=== PATIENT | male | born 1950 | race Caucasian/White ===

== ENCOUNTER 2018-04-22 15:57 | Emergency (ER) | payer OTHER, MEDICARE ==
--- NOTE | 2018-04-22 17:10 | ER Document Report ---
ED Medical Screen (RME) - General Chief Complaint: Cough Stated Complaint: DIZZY Time Seen by Provider: 04/22/18 17:09 Mode of Arrival: Ambulatory Information source: Patient TRAVEL OUTSIDE OF THE [place] IN LAST 30 DAYS: No - HPI Patient complains to provider of: cough Onset: Other - pt. with c/o productive cough and occ. dizziness for the past several days. - Related Data Allergies/Adverse Reactions: No Known Allergies Allergy (Verified 04/22/18 16:08) Past Medical History - Social History Chew tobacco use (# tins/day): No Frequency of alcohol use: Occasional Drug Abuse: None - Past Medical History Cardiac Medical History: Reports: Hx Hypercholesterolemia, Hx Hypertension Pulmonary Medical History: Reports: Hx COPD, Hx Pneumonia Renal/ Medical History: Denies: Hx Peritoneal Dialysis Psychiatric Medical History: Reports: Hx Depression, Hx Schizophrenia Past Surgical History: Reports: Hx Cholecystectomy, Hx Herniorrhaphy Physical Exam - Vital signs Vitals: Temp Pulse Resp BP Pulse Ox 99.2 F 78 20 140/87 H 96 04/22/18 16:20 04/22/18 16:20 04/22/18 16:20 04/22/18 16:20 04/22/18 16:20 Course - Vital Signs Vital signs: Temp Pulse Resp BP Pulse Ox 99.2 F 78 20 140/87 H 96 04/22/18 16:20 04/22/18 16:20 04/22/18 16:20 04/22/18 16:20 04/22/18 16:20
[2018-04-22 17:37] LABS: ABSOLUTE LYMPHOCYTES (AUTO) 1.4 10^3/uL (0.5-4.7); ABSOLUTE MONOCYTES (AUTO) 1.6 10^3/uL (0.1-1.4); ABSOLUTE NEUT (AUTO) 7.9 10^3/uL (1.7-8.2); BASOPHILS % (AUTO) 0.2 % (0-2); EOSINOPHILS % (AUTO) 0.4 % (0-6); HEMATOCRIT 41.4 % (37.9-51.0); MEAN CORPUSCULAR HEMOGLOBIN 30.6 pg (27.0-33.4); MEAN CORPUSCULAR HGB CONC 33.9 g/dL (32.0-36.0); MEAN CORPUSCULAR VOLUME 90 fl (80-97); MONOCYTES % (AUTO) 14.8 % (3-13); PLATELET COUNT 254 10^3/uL (150-450); RED BLOOD COUNT 4.58 10^6/uL (4.35-5.55); RED CELL DISTRIBUTION WIDTH 14.8 % (11.5-14.0); SEGMENTED NEUTROPHILS % (AUTO) 71.6 % (42-78); TOTAL CELLS COUNTED % (AUTO) 100 %; WHITE BLOOD COUNT 11.1 10^3/uL (4.0-10.5)
[2018-04-22 17:51] LABS: ALANINE AMINOTRANSFERASE 53 U/L (21-72); ALBUMIN 4.2 g/dL (3.5-5.0); ALKALINE PHOSPHATASE 57 U/L (38-126); ANION GAP 13 (5-19); ASPARTATE AMINO TRANSFERASE 37 U/L (17-59); BILIRUBIN,DIRECT 0.3 mg/dL (0.0-0.4); BILIRUBIN,TOTAL 0.6 mg/dL (0.2-1.3); BLOOD UREA NITROGEN 34 mg/dL (7-20); CALCIUM 9.2 mg/dL (8.4-10.2); CARBON DIOXIDE 28 mmol/L (22-30); CHLORIDE 100 mmol/L (98-107); GLUCOSE 94 mg/dL (75-110); POTASSIUM 3.9 mmol/L (3.6-5.0); SODIUM 140.5 mmol/L (137-145); TOTAL PROTEIN 6.9 g/dL (6.3-8.2)
--- NOTE | 2018-04-22 18:40 | RADIOLOGY REPORT (SQ) ---
EXAM DESCRIPTION: CHEST 2 VIEWS COMPLETED DATE/TIME: 04/22/2018 5:59 pm REASON FOR STUDY: cough COMPARISON: 03/12/2015 EXAM PARAMETERS: NUMBER OF VIEWS: two views TECHNIQUE: Digital Frontal and Lateral radiographic views of the chest acquired. RADIATION DOSE: NA LIMITATIONS: none FINDINGS: LUNGS AND PLEURA: No acute opacities, masses or pneumothorax. Similar coarse interstitial changes -parenchymal scarring -nodularity compared to the prior study. No pleural effusion. MEDIASTINUM AND HILAR STRUCTURES: Stable, multiple calcified lymph nodes. . HEART AND VASCULAR STRUCTURES: Heart normal size. No evidence for failure. BONES: No acute findings. HARDWARE: None in the chest. OTHER: No other significant finding. IMPRESSION: NO ACUTE RADIOGRAPHIC FINDING IN THE CHEST.Similar coarse interstitial changes -parenchy mal scarring -nodularity compared to the prior study. TECHNICAL DOCUMENTATION: JOB ID: [id number] [place]-72 2010 [employer]- All Rights Reserved Reading location - IP/workstation name: [email or web address]
[2018-04-22] MEDS ORDERED: LIDOCAINE 2% INJ-PF (20 MG/ML) 10 ML AMPUL NEB ONE (20:19)
[2018-04-22] MEDS ORDERED: BENZONATATE 100 MG CAPSULE PO ONE (20:19)
--- NOTE | 2018-04-22 20:22 | ER Document Report ---
ED General - General Chief Complaint: Cough Stated Complaint: DIZZY Time Seen by Provider: 04/22/18 17:09 Mode of Arrival: Ambulatory Notes: Patient is a 67-year-old male with a past medical history of sarcoidosis who presents with 2 weeks of a persistent, nonproductive cough. The patient was seen in urgent care approximately 1 week ago, started on steroids and an antibiotic but notes that this has not improved his cough. The patient describes the cough as being a pervasive, persistent cough but denies any associated sputum production, shortness of breath, or chest pain. He states that he has had similar symptoms in the past with bronchitis. The patient does also report that he has been taking albuterol and Symbicort without any significant improvement of his symptoms. He denies any fever or constitutional symptoms. TRAVEL OUTSIDE OF THE [place] IN LAST 30 DAYS: No - Related Data Allergies/Adverse Reactions: No Known Allergies Allergy (Verified 04/22/18 16:08) Past Medical History - General Information source: Patient - Social History Smoking Status: Former Smoker Chew tobacco use (# tins/day): No Frequency of alcohol use: Occasional Drug Abuse: None Lives with: Family Family History: Reviewed & Not Pertinent Patient has suicidal ideation: No Patient has homicidal ideation: No - Past Medical History Cardiac Medical History: Reports: Hx Hypercholesterolemia, Hx Hypertension Pulmonary Medical History: Reports: Hx COPD, Hx Pneumonia Renal/ Medical History: Denies: Hx Peritoneal Dialysis Psychiatric Medical History: Reports: Hx Depression, Hx Schizophrenia Past Surgical History: Reports: Hx Cholecystectomy, Hx Herniorrhaphy - Immunizations Hx Pneumococcal Vaccination: 09/13/11 Review of Systems - Review of Systems Notes: Constitutional: Negative for fever. HENT: Negative for sore throat. Eyes: Negative for visual changes. Cardiovascular: Negative for chest pain. Respiratory: Positive for persistent cough Gastrointestinal: Negative for abdominal pain, vomiting or diarrhea. Genitourinary: Negative for dysuria. Musculoskeletal: Negative for back pain. Skin: Negative for rash. Neurological: Negative for headaches, weakness or numbness. 10 point ROS negative except as marked above and in HPI. Physical Exam - Vital signs Vitals: Temp Pulse Resp BP Pulse Ox 99.2 F 78 20 140/87 H 96 04/22/18 16:20 04/22/18 16:20 04/22/18 16:20 04/22/18 16:20 04/22/18 16:20 Interpretation: Normal Notes: PHYSICAL EXAMINATION: GENERAL: Well-appearing, well-nourished and in no acute distress. HEAD: Atraumatic, normocephalic. EYES: Pupils equal round and reactive to light, extraocular movements intact, sclera anicteric, conjunctiva are normal. ENT: nares patent, oropharynx clear without exudates. Moist mucous membranes. NECK: Normal range of motion, supple without lymphadenopathy LUNGS: Breath sounds clear to auscultation bilaterally and equal. Faint end expiratory wheezing in all lung o[place] HEART: Regular rate and rhythm without murmurs ABDOMEN: Soft, nontender, normoactive bowel sounds. No guarding, no rebound. No masses appreciated. EXTREMITIES: Normal range of motion, no pitting or edema. No cyanosis. NEUROLOGICAL: No focal neurological deficits. Moves all extremities spontaneously and on command. PSYCH: Normal mood, normal affect. SKIN: Warm, Dry, normal turgor, no rashes or lesions noted. Course - Re-evaluation Re-evalutation: 04/22/18 20:20 Patient presents with a clinical history and exam most consistent with an acute viral bronchitis. Patient is overall well in appearance without tachypnea, hypoxemia, tachycardia, or difficulty with ambulation. Breath sounds are clear bilaterally. No fever. Patient does have additional signs of upper respiratory infection including nasal congestion, sore throat, and sinus pressure. Patient does have a history of sarcoidosis which is noted on chest x- ray. He has already been started on a steroid burst by his primary care doctor. He also ready has albuterol inhalers at home. He is currently on oral antibiotics but does not recall the name. His chest x-ray does not show an acute pneumonia and his clinical history is most consistent with a viral lower respiratory tract infection superimposed on underlying sarcoidosis. He is saturating 97% on room air, and not tachypnea, very well in appearance. He has had improvement of his cough after receiving Tessalon and lidocaine nebulizer. At this time will discharge with return precautions and follow-up recommendations. Verbal discharge instructions given a the bedside and opportunity for questions given. Medication warnings reviewed. Patient is in agreement with this plan and has verbalized understanding of return precautions and the need for primary care follow-up in the next 24-72 hours. 04/23/18 03:38 - Vital Signs Vital signs: Temp Pulse Resp BP Pulse Ox 97.6 F 71 16 150/88 H 100 04/22/18 21:00 04/22/18 21:00 04/22/18 21:00 04/22/18 21:00 04/22/18 21:00 - Laboratory Result Diagrams: 04/22/18 17:20 04/22/18 17:20 Laboratory results interpreted by me: 04/22/18 04/22/18 17:20 17:20 WBC 11.1 H RDW 14.8 H Monocytes % 14.8 H Absolute Monocytes 1.6 H BUN 34 H Creatinine 1.45 H Est GFR ( Amer) 59 L Est GFR (Non-Af Amer) 49 L - Diagnostic Test Radiology reviewed: Image reviewed, Reports reviewed Radiology results interpreted by me: 04/22/18 20:21 Chest x-ray: Scattered nodularities, no acute infiltrate Discharge - Discharge Clinical Impression: Persistent cough, Sarcoidosis Acute bronchitis Qualifiers: Bronchitis organism: unspecified organism Qualified Code(s): J20.9 - Acute bronchitis, unspecified Condition: Good Disposition: HOME, SELF-CARE Additional Instructions: You were seen for symptoms most consistent with bronchitis. This can take up to 12 weeks to fully resolve. This is generally due to a viral infection. Please follow-up with your primary doctor in the next 2-3 days. Return if you develop worsening cough, vomiting, fever >100.4, pass out, begin coughing blood, or have any other symptoms that are concerning to you. Please use the medications prescribed today as directed. Referrals: RIA VINSON DO [Primary Care Provider] - Follow up as needed
[2018-04-22 21:05] VITALS: BP 150/88
== END 2018-04-22 21:02 | disposition home or self-care (01) ==
LOC: ER 15:57
DX: J20.9 Acute bronchitis, unspecified (principal); J44.0 Chronic obstructive pulmonary disease with (acute) lower respiratory infection; D86.9 Sarcoidosis, unspecified; R05 Cough; R09.81 Nasal congestion; I10 Essential (primary) hypertension; Z87.01 Personal history of pneumonia (recurrent); Z87.891 Personal history of nicotine dependence
CPT/HCPCS: 99284; 36415; 85025; 80053; 71046; J3490

== ENCOUNTER 2019-08-25 12:31 | Emergency (ER) | payer OTHER, MEDICARE ==
[2019-08-25 13:05] LABS: ABSOLUTE EOSINOPHILS # (AUTO) 0.3 10^3/uL (0.0-0.6); ABSOLUTE LYMPHOCYTES (AUTO) 1.3 10^3/uL (0.5-4.7); ABSOLUTE MONOCYTES (AUTO) 1.1 10^3/uL (0.1-1.4); ABSOLUTE NEUT (AUTO) 4.1 10^3/uL (1.7-8.2); BASOPHILS % (AUTO) 0.7 % (0-2); EOSINOPHILS % (AUTO) 4.3 % (0-6); HEMATOCRIT 40.7 % (37.9-51.0); HEMOGLOBIN 13.5 g/dL (13.5-17.0); MEAN CORPUSCULAR HEMOGLOBIN 29.8 pg (27.0-33.4); MEAN CORPUSCULAR HGB CONC 33.2 g/dL (32.0-36.0); MEAN CORPUSCULAR VOLUME 90 fl (80-97); MONOCYTES % (AUTO) 15.6 % (3-13); PLATELET COUNT 243 10^3/uL (150-450); RED BLOOD COUNT 4.54 10^6/uL (4.35-5.55); RED CELL DISTRIBUTION WIDTH 14.5 % (11.5-14.0); SEGMENTED NEUTROPHILS % (AUTO) 60.4 % (42-78); TOTAL CELLS COUNTED % (AUTO) 100 %; WHITE BLOOD COUNT 6.8 10^3/uL (4.0-10.5)
[2019-08-25 13:30] LABS: ALKALINE PHOSPHATASE 95 U/L (38-126); ANION GAP 9 (5-19); ASPARTATE AMINO TRANSFERASE 27 U/L (17-59); BILIRUBIN,DIRECT 0.2 mg/dL (0.0-0.4); BILIRUBIN,TOTAL 0.4 mg/dL (0.2-1.3); BLOOD UREA NITROGEN 9 mg/dL (7-20); CALCIUM 8.8 mg/dL (8.4-10.2); CARBON DIOXIDE 31 mmol/L (22-30); CHLORIDE 101 mmol/L (98-107); CREATINE KINASE 169 U/L (55-170); GLUCOSE 108 mg/dL (75-110); POTASSIUM 3.5 mmol/L (3.6-5.0)
[2019-08-25 13:42] LABS: CREATINE KINASE MB 2.44 ng/mL (<4.55)
[2019-08-25 13:43] LABS: TROPONIN I < 0.012 ng/mL
[2019-08-25 14:55] LABS: APPEARANCE,URINE CLEAR; BILIRUBIN,URINE NEGATIVE (NEGATIVE); COLOR,URINE YELLOW; GLUCOSE, URINE NEGATIVE (NEGATIVE); KETONES,URINE NEGATIVE (NEGATIVE); LEUKOCYTE ESTERASE,URINE NEGATIVE (NEGATIVE); NITRITE,URINE NEGATIVE (NEGATIVE); PROTEIN,URINE NEGATIVE (NEGATIVE); URINE SPECIFIC GRAVITY 1.006
--- NOTE | 2019-08-25 15:18 | RADIOLOGY REPORT (SQ) ---
EXAM DESCRIPTION: CHEST SINGLE VIEW COMPLETED DATE/TIME: 08/25/2019 3:09 pm REASON FOR STUDY: SOB COMPARISON: 04/22/2018 EXAM PARAMETERS: NUMBER OF VIEWS: One view. TECHNIQUE: Single frontal radiographic view of the chest acquired. RADIATION DOSE: NA LIMITATIONS: None. FINDINGS: LUNGS AND PLEURA: Chronic pleural and parenchymal changes bilaterally. Density right infr ahilar airspace disease appears slightly worse. This could represent some superimposed infection. F indings are otherwise stable. Slight blunting of the costophrenic angles most likely representing pl eural thickening. MEDIASTINUM AND HILAR STRUCTURES: No masses. Contour normal. HEART AND VASCULAR STRUCTURES: Heart normal in size. Normal vasculature. BONES: No acute findings. HARDWARE: None in the chest. OTHER: No other significant finding. IMPRESSION: Chronic bilateral pleural and parenchymal changes. There is focal increased opacity in the right midlung field which could represent some superimposed acute pneumonia. TECHNICAL DOCUMENTATION: JOB ID: [id number] [employer]- All Rights Reserved Reading location - IP/workstation name: [email or web address]
[2019-08-25] MEDS ORDERED: ALBUTEROL SULFATE 0.083% NEB 2.5 MG/3 ML AMPUL NEB ONE ×2 (15:37→15:38)
[2019-08-25] MEDS ORDERED: METHYLPREDNISOLONE INJ 125 MG/2 ML SDV IV ONE (15:37)
[2019-08-25] MEDS ORDERED: IPRATROPIUM/ALBUTEROL 0.5-2.5 MG/3 ML AMPUL NEB ONE (15:37)
[2019-08-25] MEDS ORDERED: LEVOFLOXACIN 750 MG/D5W RTU 750 MG/150 ML RTUPB IV ONE (16:33)
--- NOTE | 2019-08-25 16:33 | ER Document Report ---
ED General - General Chief Complaint: Breathing Difficulty Stated Complaint: CHEST PAIN Time Seen by Provider: 08/25/19 14:37 Primary Care Provider: [facility] [Primary [facility] Provider] - Follow up as needed Mode of Arrival: Ambulatory Information source: Patient Notes: Patient is 68-year-old male patient with history of COPD and pneumonia presenting with cough, congestion and chills at home. Patient reports he thinks he may have pneumonia. Patient reports he is usually seen at the [facility] as he lives in the area however he states he was down here for an appointment and to visit some family when he went to the urgent care to be checked out and they sent him here. TRAVEL OUTSIDE OF THE [place] IN LAST 30 DAYS: No - Related Data Allergies/Adverse Reactions: No Known Allergies Allergy (Verified 08/25/19 12:36) Past Medical History - General Information source: Patient - Social History Smoking Status: Former Smoker Family History: Reviewed & Not Pertinent Patient has suicidal ideation: No Patient has homicidal ideation: No - Past Medical History Cardiac Medical History: Reports: Hx Hypercholesterolemia, Hx Hypertension Pulmonary Medical History: Reports: Hx COPD, Hx Pneumonia Renal/ Medical History: Denies: Hx Peritoneal Dialysis Psychiatric Medical History: Reports: Hx Depression, Hx Schizophrenia Past Surgical History: Reports: Hx Abdominal Surgery - hernia repair, Hx Cholecystectomy, Hx Herniorrhaphy - Immunizations Hx Pneumococcal Vaccination: 09/13/11 Review of Systems - Review of Systems Constitutional: Chills EENT: No symptoms reported Cardiovascular: No symptoms reported Respiratory: Cough, Short of breath Gastrointestinal: No symptoms reported Genitourinary: No symptoms reported Male Genitourinary: No symptoms reported Musculoskeletal: No symptoms reported Skin: No symptoms reported Hematologic/Lymphatic: No symptoms reported Neurological/Psychological: No symptoms reported Physical Exam - Vital signs Vitals: Temp Pulse Resp BP Pulse Ox 98.3 F 75 20 122/79 94 08/25/19 12:36 08/25/19 12:36 08/25/19 12:36 08/25/19 12:36 08/25/19 12:36 - Notes Notes: PHYSICAL EXAMINATION: GENERAL: Well-appearing, well-nourished and in no acute distress. HEAD: Atraumatic, normocephalic. EYES: Pupils equal round and reactive to light, extraocular movements intact, sclera anicteric, conjunctiva are normal. ENT: Nares patent, oropharynx clear without exudates. Moist mucous membranes. NECK: Normal range of motion, supple without lymphadenopathy LUNGS: Expiratory and expiratory wheezes noted, increased work of breathing noted. HEART: Regular rate and rhythm without murmurs ABDOMEN: Soft, nontender, nondistended abdomen. No guarding, no rebound. No masses appreciated. Musculoskeletal: Normal range of motion, no pitting or edema. No cyanosis. NEUROLOGICAL: Cranial nerves grossly intact. Normal speech, normal gait. Normal sensory, motor exams PSYCH: Normal mood, normal affect. SKIN: Warm, Dry, normal turgor, no rashes or lesions noted. Course - Re-evaluation Re-evalutation: Laboratory 08/25/19 08/25/19 08/25/19 12:52 12:52 12:52 WBC 6.8 RBC 4.54 Hgb 13.5 Hct 40.7 MCV 90 MCH 29.8 MCHC 33.2 RDW 14.5 H Plt Count 243 Lymph % (Auto) 19.0 [place] % (Auto) 15.6 H Eos % (Auto) 4.3 Baso % (Auto) 0.7 Absolute Neuts (auto) 4.1 Absolute Lymphs (auto) 1.3 Absolute Monos (auto) 1.1 Absolute Eos (auto) 0.3 Absolute Basos (auto) 0.0 Seg Neutrophils % 60.4 Sodium 141.3 Potassium 3.5 L Chloride 101 Carbon Dioxide 31 H Anion Gap 9 BUN 9 Creatinine 1.26 H Est GFR ( Amer) > 60 Est GFR (MDRD) Non-Af 57 L Glucose 108 Calcium 8.8 Total Bilirubin 0.4 Direct Bilirubin 0.2 Neonat Total Bilirubin Not Reportable Neonat Direct Bilirubin Not Reportable Neonat Indirect Bili Not Reportable AST 27 ALT 24 Alkaline Phosphatase 95 Creatine Kinase 169 CK-MB (CK-2) 2.44 Troponin I < 0.012 Total Protein 7.0 Albumin 4.0 Urine Color Urine Appearance Urine pH Ur Specific [place] Urine Protein Urine Glucose (UA) Urine Ketones Urine Blood Urine Nitrite Urine Bilirubin Urine Urobilinogen Ur Leukocyte Esterase Urine WBC (Auto) Urine Mucus (Auto) Urine Ascorbic Acid 08/25/19 08/25/19 14:20 16:20 WBC RBC Hgb Hct MCV MCH MCHC RDW Plt Count Lymph % (Auto) [place] % (Auto) Eos % (Auto) Baso % (Auto) Absolute Neuts (auto) Absolute Lymphs (auto) Absolute Monos (auto) Absolute Eos (auto) Absolute Basos (auto) Seg Neutrophils % Sodium Potassium Chloride Carbon Dioxide Anion Gap BUN Creatinine Est GFR ( Amer) Est GFR (MDRD) Non-Af Glucose Calcium Total Bilirubin Direct Bilirubin Neonat Total Bilirubin Neonat Direct Bilirubin Neonat Indirect Bili AST ALT Alkaline Phosphatase Creatine Kinase CK-MB (CK-2) Troponin I < 0.012 Total Protein Albumin Urine Color YELLOW Urine Appearance CLEAR Urine pH 6.0 Ur Specific [place] 1.006 Urine Protein NEGATIVE Urine Glucose (UA) NEGATIVE Urine Ketones NEGATIVE Urine Blood NEGATIVE Urine Nitrite NEGATIVE Urine Bilirubin NEGATIVE Urine Urobilinogen 2.0 H Ur Leukocyte Esterase NEGATIVE Urine WBC (Auto) 0 Urine Mucus (Auto) RARE Urine Ascorbic Acid NEGATIVE Chest X-Ray 08/25/19 14:23 IMPRESSION: Chronic bilateral pleural and parenchymal changes. There is focal increased opacity in the right midlung field which could represent some superim posed acute pneumonia. Patient reports significant improvement of his symptoms after administration of IV solumedrol and breathing treatments. He was ambulated with a pulse ox and maintained O2 saturations in the low 90s. He does have a history of COPD. He appears much improved. I think he is appropriate to try outpatient antibiotic therapy for this pneumonia. He was given very strict ED return precautions, patient is agreeable to this plan. Patient will be discharged home at this time . - Vital Signs Vital signs: Temp Pulse Resp BP Pulse Ox 99.3 F 75 15 147/98 H 92 08/25/19 19:01 08/25/19 12:46 08/25/19 19:01 08/25/19 19:01 08/25/19 19:01 - Laboratory Result Diagrams: 08/25/19 12:52 08/25/19 12:52 Laboratory results interpreted by me: 08/25/19 08/25/19 08/25/19 12:52 12:52 14:20 RDW 14.5 H [place] % (Auto) 15.6 H Potassium 3.5 L Carbon Dioxide 31 H Creatinine 1.26 H Est GFR (MDRD) Non-Af 57 L Urine Urobilinogen 2.0 H Discharge - Discharge Clinical Impression: Pneumonia Qualifiers: Pneumonia type: due to unspecified organism Laterality: unspecified laterality Lung location: unspecified part of lung Qualified Code(s): J18.9 - Pneumonia, unspecified organism Condition: Stable Disposition: HOME, SELF-CARE Additional Instructions: You have been diagnosed with a pneumonia. It is very important that you take all of your antibiotics until they are gone even if you are feeling better. Please return to the emergency department immediately if you began having worsening shortness of breath, become confused, have worsening pain, pass out, have persistent vomiting that prevents you from being able to drink fluids for more than 12 hours, or have any other symptoms that are worrisome to you. Please follow-up with your primary care doctor in the next 1-2 days. Prescriptions: Prednisone [Deltasone 20 mg Tablet] 2 tab PO DAILY 5 Days #10 tablet Levofloxacin [Levaquin 750 mg Tablet] 750 mg PO DAILY #5 tablet Referrals: [facility] [Primary Care Provider] - Follow up as needed
[2019-08-25 19:08] VITALS: BP 147/98
--- NOTE | 2019-08-25 21:36 | EKG REPORT ---
SEVERITY:- NORMAL ECG - SINUS RHYTHM : Confirmed by: Malcolm Chavez MD 25-Aug-2019 21:36:08
== END 2019-08-25 19:01 | disposition home or self-care (01) ==
LOC: ER 12:31
DX: J18.9 Pneumonia, unspecified organism (principal); R68.83 Chills (without fever); E78.00 Pure hypercholesterolemia, unspecified; I10 Essential (primary) hypertension; Z90.49 Acquired absence of other specified parts of digestive tract
CPT/HCPCS: 93005; 94640 ×2; 99285; 96375; 96365; 36415; 82553; 82550; 85025; 80053; 81001; 84484; 71045; 93010; J2930; J1956; J7620